=== PATIENT | female | born 1935 | race Caucasian/White ===

== ENCOUNTER 2016-09-28 09:32 | Day surgery (SDC) | payer MEDICARE, MEDICAID ==
[2016-09-28] MEDS ORDERED: PROPOFOL 10 MG/ML VIAL IV ONE (14:00)
[2016-09-28] MEDS ORDERED: LIDOCAINE 2% MDV (20MG/ML) 20ML VIAL IV ONE (14:00)
--- NOTE | 2016-10-04 13:20 | Operative Note ---
DATE OF SURGERY: 09/28/2016 OPERATION: COLONOSCOPY with random biopsy and cold forceps polyp removal. PREOPERATIVE DIAGNOSIS: Chronic idiopathic diarrhea. POSTOPERATIVE DIAGNOSES: 1. Chronic diverticulosis, left sided greater than right. 2. Normal-appearing terminal ileum. 3. Diminutive ascending colon polyp. 4. Rule out microscopic colitis. PROCEDURE: After informed consent was obtained from the patient, the patient was placed in the left lateral decubitus position in the endoscopy suite, sedated and monitored by the department of anesthesia. Digital rectal exam was unremarkable. A well-lubricated [id number] colonoscope was inserted into the rectum and advanced to the cecum. Preparation quality was excellent. The cecum and terminal ileum as well aspirin the ascending colon, transverse colon, descending colon, sigmoid colon, and rectum were carefully inspected. There were colonic diverticular changes left sided much greater than right being noted. No inflammation was seen. Random biopsies were obtained throughout the length of the colon, particularly from the ascending, transverse, and rectosigmoid colon and will be sent to rule out microscopic colitis changes. There was a diminutive descending colon polyp which was removed with a cold forceps. Minimal bleeding was noted. Forward and J-turn views of the rectum and anorectum were unremarkable. The endoscope was straightened, the rectal ampulla deflated, and the endoscope was removed. RECOMMENDATIONS: We will await the results of tissue histology. As always, thank you for allowing me to participate in the healthcare of your patients. CC: PEEWEE Bellamy
== END 2016-09-28 12:06 | disposition home or self-care (01) ==
LOC: HOP 09:32
PROVIDERS: ATTEND Internal Medicine Gastroenterology
DX: K57.30 Diverticulosis of large intestine without perforation or abscess without bleeding (principal); K63.5 Polyp of colon; I10 Essential (primary) hypertension; E78.00 Pure hypercholesterolemia, unspecified

== ENCOUNTER 2017-10-01 08:44 | Emergency (ER) | payer MEDICARE, MEDICAID ==
--- NOTE | 2017-10-01 09:12 | Emergency Department Record ---
History of Present Illness - General Chief Complaint: Numbness Stated Complaint: FACE NUMBNESS Time Seen by Provider: 10/01/17 08:53 Source: Patient Mode of Arrival: Ambulatory Limitations: No limitations - History of Present Illness Initial Comments: The patient states she has had very mild L leg numbness for about 2 weeks. Now for the last 2-3 days she feels like her L lower face is slightly numb also. She denies any weakness, visual or speech changes, balance issues or confusion. The patient did drive herself here to the ER with no difficulty. Onset/Timin -: Week(s) Location: Left face, Left leg History of same: No Place: Home Quality: Numb, Tingling Improves With: None Worsens With: None On Anticoagulants: No Associated Symptoms: Denies other symptoms Treatments Prior to Arrival: None - [place] Coma Scale Eye Response: (4) Open spontaneously Motor Response: (6) Obeys commands Verbal Response: (5) Oriented [place] Total: 15 - Symptoms of Stroke Symptoms of stroke: Numbness - Related Data Allergies/Adverse Reactions: Allergies Allergy/AdvReac Type Severity Reaction Status Date / Time No Known Drug Allergies Allergy Verified 10/01/17 08:46 Travel Screening - Travel/Exposure Within Last 30 Days Have you traveled within the last 30 days?: No Review of Systems Constitutional: Denies: Chills, Fever Eyes: Denies: Eye discharge ENT: Denies: Congestion Respiratory: Denies: Cough, Dyspnea Cardiovascular: Denies: Arrhythmia, Syncope Endocrine: Denies: Fatigue Gastrointestinal: Denies: Abdominal pain Genitourinary: Denies: Dysuria Musculoskeletal: Denies: Back pain Past Medical History - SOCIAL HISTORY Smoking Status: Never smoker Alcohol Use: None Drug Use: None - RESPIRATORY Hx Respiratory Disorders: No - CARDIOVASCULAR Hx Cardio Disorders: Yes Hx Hypertension: Yes (CONTROLLED) Comment:: high cholesterol - NEURO Hx Neuro Disorders: No - GI Hx GI Disorders: Yes Hx Diverticulitis: Yes (OCC FLARE UPS) - Hx Genitourinary Disorders: Yes Hx UTI: Yes - ENDOCRINE Hx Endocrine Disorders: No - MUSCULOSKELETAL Hx Musculoskeletal Disorders: Yes Hx Arthritis: Yes Hx Gout: Yes - PSYCH Hx Psych Problems: No - HEMATOLOGY/ONCOLOGY Hx Hematology/Oncology Disorders: No Family Medical History Any Significant Family History?: Yes Hx Cancer: Father, Brother/Sister *Cancer Comment: BREAST, LUNG Physical Exam - General General Appearance: Alert, Oriented x3 (The patient is answering all questions normally including date, month, year, age, Bday, address and phone number.), Cooperative, No acute distress - Head Head exam: Atraumatic, Normocephalic, Normal inspection - Eye Eye exam: Normal appearance, PERRL, EOMI - ENT Throat exam: Normal inspection. negative: Tonsillar erythema, Tonsillar exudate - Neck Neck exam: Normal inspection, Full ROM, Other (Neg bruits.). negative: Tenderness - Respiratory Respiratory exam: Normal lung sounds bilaterally. negative: Respiratory distress - Cardiovascular Cardiovascular Exam: Regular rate, Normal rhythm, Normal heart sounds - GI/Abdominal GI/Abdominal exam: Soft, Normal bowel sounds. negative: Tenderness - Extremities Extremities exam: Normal inspection, Full ROM, Normal capillary refill. negative: Tenderness - Neurological Neurological exam: Alert, Normal gait (The patient has a normal gait with no ataxia.), Oriented X3, Reflexes normal, Other (Neg Drift and Rhomberb exams. The patient's Knee to cintron tests are normal bilaterally along with finger to nose testing.). negative: Abnormal gait, Altered, Motor sensory deficit (the patient's sensation testing is equal and normal to her legs and face bilaterally. The numbness is only subjective.) - Psychiatric Psychiatric exam: negative: Anxious, Depressed - Skin Skin exam: negative: Rash Course Vital Signs 10/01/17 08:49 Temperature 97.7 F Pulse Rate 80 Respiratory 20 Rate Blood Pressure 175/80 Pulse Ox 97 - Reevaluation(s) Reevaluation #1: The patient is doing well with no new changes. She has no objective findings of numbness and her symptoms have been fairly chronic. The patient does have a family member here who states she is at her baseline presently. I do not find any objective findings of CVA at this time. I did discuss the issues with her Family doctor (Luisa) who does agree with the plan for discharge and F/U later this week. The patient is to take a full dose ASA until she see's her PCP. 10/01/17 10:08 Medical Decision Making - Data Complexity MDM Data: Labs Ordered and/or Reviewed, X-Ray Ordered and/or Reviewed, EKG Ordered and/or Reviewed - Lab Data Result diagrams: 10/01/17 09:10 10/01/17 09:10 - EKG Data -: EKG Interpreted by Me EKG: No Acute Changes, Normal EKG - Radiology Data Radiology results: Report reviewed (Head CT: Neg for acute stroke.) Disposition Disposition: Discharge Clinical Impression: Paresthesia Disposition: Home, Self-Care Condition: (2) Stable Instructions: Paresthesia (ED) Additional Instructions: Please take a full dose ASA once a day for a week and please see your family doctor for recheck later this week. Return to the ER for any worsening symptoms of numbness, or any weakness, or confusion. Forms: Patient Portal Access Time of Disposition: 10:12 Quality - Quality Measures Quality Measures: N/A - Blood Pressure Screening View Details: Yes Does Patient Have Any of the Following: Active Dx of HTN Blood Pressure Classification: Hypertensive Reading Systolic Measurement: 149 Diastolic Measurement: 77 Screening for High Blood Pressure: Patient Exclusion, Hx of HTN [G9744]
[2017-10-01 09:18] LABS: EOS % 1.2 % (0-6); GRAN % 51.6 % (47-80); HEMATOCRIT 42.6 % (35.0-47.0); HEMOGLOBIN 14.4 gm/dl (11.6-16.0); LYMPH % 32.4 % (16-45); MEAN CELL VOLUME 94.5 fl (81-97); MEAN CORPUSCULAR HEMOGLOBIN 31.9 pg (27-33); MEAN CORPUSCULAR HGB CONC 33.8 g/dl (32-36); MEAN PLATELET VOLUME 9.5 fl (7.4-10.4); MONO % 13.8 % (0-9); PLATELET COUNT 254 K/uL (130-400); RED BLOOD COUNT 4.51 M/uL (3.80-5.40); RED CELL DISTRIBUTION WIDTH 13.1 % (11.5-14.5); WHITE BLOOD COUNT W/O DIFF 5.1 K/uL (4.2-12.2)
[2017-10-01 09:28] LABS: BLOOD UREA NITROGEN 16 mg/dL (8-23); CREATININE 0.7 mg/dL (0.5-0.9); EST GLOMERULAR FILTRATION RATE > 60 mL/min
[2017-10-01 09:31] LABS: GLUCOSE,RANDOM 117 mg/dL (74-109)
[2017-10-01 09:34] LABS: CREATINE PHOSPHOKINASE 81 U/L (26-192)
[2017-10-01 09:35] LABS: CKMB 2.6 ng/mL (<3.77)
[2017-10-01] MEDS ORDERED: ASPIRIN 325 MG TABLET PO ONE (10:10)
--- NOTE | 2017-10-01 14:13 | CT SCAN REPORT ---
EXAM: CT OF THE HEAD WITHOUT CONTRAST HISTORY: LEFT FACIAL NUMBNESS FOR THREE DAYS. LEFT LEG NUMBNESS FOR TWO WEEKS. INTERMITTENT CONFUSION. TECHNIQUE: Routine noncontrast CT examination of the head was obtained. Comparison: CT of the head without contrast dated 02/03/14. FINDINGS: There is minor age related atrophy. No ventriculomegaly. No new area of abnormally increased or decreased attenuation is noted throughout the brain substance. There is questionable minimal periventricular and subcortical white matter lucencies scattered in each cerebral hemisphere consistent with chronic small vessel ischemia, stable. No abnormal extraaxial fluid collection is seen. No focal skull abnormality. There is minimal mucosal thickening in the left maxillary sinus. The paranasal sinuses and mastoid air cells to the extent visualized are otherwise clear. The obits as visualized are unremarkable. IMPRESSION: 1. NO CT EVIDENCE OF AN ACUTE INTRACRANIAL ABNORMALITY WITHOUT CHANGE IN APPEARANCE OF THE BRAIN SINCE 02/03/14. 2. MINOR AGE RELATED ATROPHY. MINIMAL WHITE MATTER LUCENCIES SCATTERED IN EACH CEREBRAL HEMISPHERE CONSISTENT WITH CHRONIC SMALL VESSEL ISCHEMIA. 3. MINOR MUCOSAL THICKENING IN THE LEFT MAXILLARY SINUS. JOB NUMBER: [id number] MTDD
== END 2017-10-01 10:23 | disposition home or self-care (01) ==
LOC: ER 08:44
DX: R20.2 Paresthesia of skin (principal); R20.0 Anesthesia of skin; I10 Essential (primary) hypertension
CPT/HCPCS: 70450; 80048; 82550; 82553; 84484; 85025; 93005; 93010; 99284

== ENCOUNTER 2017-10-19 20:05 | Emergency (ER) | payer MEDICARE, MEDICAID ==
--- NOTE | 2017-10-19 20:28 | Emergency Department Record ---
History of Present Illness - General Chief Complaint: Confusion Stated Complaint: CONFUSION Time Seen by Provider: 10/19/17 20:06 Source: Patient Mode of Arrival: Wheelchair Limitations: No limitations - History of Present Illness Initial Comments: 82 yo female presents to ED for evaluation of possible UTI. Patient reports a history of frequent UTI's, reports that she is currently on Cipro for recent UTI diagnosis. Patient denies urinary symptoms, denies fevers, chills, or recent illness. Patient does report mild "buzzing in the head", and decreased activity for the past several weeks. Patient denies focal weakness, nausea, or headache symptoms. MD Complaint: Other Onset/Timin -: Month(s) Severity: Mild Consistency: Constant Context: Change in medication Associated Symptoms: Denies other symptoms - [place] Coma Scale Eye Response: (4) Open spontaneously Motor Response: (6) Obeys commands Verbal Response: (5) Oriented [place] Total: 15 - Symptoms of Stroke Onset of Symptoms Date: 10/19/17 Symptoms of stroke: Unable to Think Clearly - Related Data Allergies Allergy/AdvReac Type Severity Reaction Status Date / Time No Known Drug Allergies Allergy Unverified 10/11/17 09:01 Travel Screening - Travel/Exposure Within Last 30 Days Have you traveled within the last 30 days?: No - Travel/Exposure Within Last Year Have you traveled outside the [place] in the last year?: No - Additonal Travel Details Have you been exposed to anyone with a communicable illness?: No - Travel Symptoms Symptom Screening: None Review of Systems Constitutional: Denies: Chills, Fever, Malaise, Night sweats Eyes: Denies: Eye discharge, Eye pain ENT: Denies: Congestion, Ear pain, Epistaxis Respiratory: Denies: Cough, Dyspnea Cardiovascular: Denies: Chest pain, Dyspnea on exertion Endocrine: Reports: Fatigue. Denies: Heat or cold intolerance Gastrointestinal: Denies: Abdominal pain, Nausea, Vomiting Genitourinary: Denies: Dysuria, Frequency, Hematuria, Incontinence, Retention Musculoskeletal: Denies: Arthralgia, Back pain, Gout, Joint swelling Skin: Denies: Bruising, Change in color Neurological: Denies: Abnormal gait, Confusion, Headache, Seizure Psychiatric: Denies: Anxiety Hematological/Lymphatic: Denies: Anemia, Blood Clots Past Medical History - SOCIAL HISTORY Smoking Status: Never smoker Alcohol Use: None Drug Use: None - RESPIRATORY Hx Respiratory Disorders: No - CARDIOVASCULAR Hx Cardio Disorders: Yes Hx Hypertension: Yes (CONTROLLED) Comment:: high cholesterol - NEURO Hx Neuro Disorders: No - GI Hx GI Disorders: Yes Hx Diverticulitis: Yes (OCC FLARE UPS) - Hx Genitourinary Disorders: Yes Hx UTI: Yes - ENDOCRINE Hx Endocrine Disorders: No - MUSCULOSKELETAL Hx Musculoskeletal Disorders: Yes Hx Arthritis: Yes Hx Gout: Yes - PSYCH Hx Psych Problems: No - HEMATOLOGY/ONCOLOGY Hx Hematology/Oncology Disorders: No Family Medical History Any Significant Family History?: No Hx Cancer: Father, Brother/Sister *Cancer Comment: BREAST, LUNG Physical Exam - General General Appearance: Alert, Oriented x3, Cooperative, No acute distress, Other ( Alert, well appearing on examination) Limitations: No limitations - Head Head exam: Atraumatic, Normocephalic, Normal inspection Head exam detail: negative: Abrasion, Contusion, Chavez's sign, General tenderness, Hematoma, Laceration - Eye Eye exam: Normal appearance. negative: Conjunctival injection, Periorbital swelling, Periorbital tenderness, Scleral icterus - ENT Ear exam: negative: Auricular hematoma, Auricular trauma Nasal Exam: negative: Active bleeding, Discharge, Dried blood, Foreign body Mouth exam: negative: Drooling, Laceration, Muffled voice, Tongue elevation - Neck Neck exam: Normal inspection. negative: Meningismus, Tenderness - Respiratory Respiratory exam: Normal lung sounds bilaterally. negative: Rales, Respiratory distress, Rhonchi, Stridor - Cardiovascular Cardiovascular Exam: Regular rate, Normal rhythm, Normal heart sounds - GI/Abdominal GI/Abdominal exam: Soft. negative: Rebound, Rigid, Tenderness - Rectal Rectal exam: Deferred - exam: Deferred - Extremities Extremities exam: Normal inspection. negative: Calf tenderness, Pedal edema, Tenderness - Back Back exam: Denies: CVA tenderness (R), CVA tenderness (L) - Neurological Neurological exam: Alert, Normal gait, Oriented X3. negative: Motor sensory deficit - Psychiatric Psychiatric exam: Normal affect, Normal mood - Skin Skin exam: Normal color. negative: Abrasion Type of lesion: negative: abrasion Course Vital Signs 10/19/17 20:07 Temperature 97.9 F Pulse Rate 72 Respiratory 18 Rate Blood Pressure 157/81 Pulse Ox 98 - Reevaluation(s) Reevaluation #1: 10/19/17 20:25 CT Brain 10/01/17: No CT evidence of an acute intracranial abnormality, no change from 01/30. Minor atrophy. Chronic small vessel ischemia. Minor mucosal thickening. CT was preformed after the onset of the patient's symptoms, and repeat imaging does not appear indicated at this time. Reevaluation #2: 10/19/17 21:01 Patient reassessed, watching television and resting comfortably. Reevaluation #3: 10/19/17 21:15 Labs reviewed, Na 124, Cl 88. Labs are otherwise grossly unremarkable for an acute process. Patient does report that she drinks a lot of water, was encouraged to cut her water intake in half. Patient is otherwise alert, well appearing, and reports that she is ready to go home at this time. Patient's family member reports that she appears at her baseline, and appears stable for discharge at this time. Lab slip for repeat Na and Cl levels in 5 days, results to be sent to Dr. Lan (PCP is Sylvie Richter who is on Maternity leave). Medical Decision Making - Lab Data Result diagrams: 10/19/17 20:30 10/19/17 20:30 Disposition Disposition: Discharge Clinical Impression: Hyponatremia Disposition: Home, Self-Care Condition: (2) Stable Instructions: Hyponatremia (ED) Additional Instructions: Return to ED if your symptoms worsen or if you have any concerns. Cut your walker intake in half. Follow-up with your family doctor in 3-5 days as directed. Forms: Patient Portal Access Time of Disposition: 21:19 Quality - Quality Measures Quality Measures: N/A - Blood Pressure Screening Does Patient Have Any of the Following: No Blood Pressure Classification: Pre-Hypertensive BP Reading Systolic Measurement: 157 Diastolic Measurement: 81 Screening for High Blood Pressure: < Pre-Hypertensive BP, F/U Documented > [ [id number]] Pre-Hypertensive Follow-up Interventions: Referral to alternative/primary care provider.
[2017-10-19 20:44] LABS: BASO % 0.5 % (0-6); EOS % 0.5 % (0-6); GRAN % 58.3 % (47-80); HEMATOCRIT 37.7 % (35.0-47.0); HEMOGLOBIN 12.8 gm/dl (11.6-16.0); LYMPH % 28.9 % (16-45); MEAN CELL VOLUME 92.2 fl (81-97); MEAN CORPUSCULAR HEMOGLOBIN 31.3 pg (27-33); MEAN PLATELET VOLUME 8.6 fl (7.4-10.4); MONO % 11.8 % (0-9); PLATELET COUNT 287 K/uL (130-400); RED BLOOD COUNT 4.09 M/uL (3.80-5.40); RED CELL DISTRIBUTION WIDTH 12.7 % (11.5-14.5); WHITE BLOOD COUNT W/O DIFF 5.7 K/uL (4.2-12.2)
[2017-10-19 20:52] LABS: URINE APPEARANCE CLEAR; URINE BILIRUBIN NEGATIVE (NEGATIVE); URINE BLOOD NEGATIVE (NEGATIVE); URINE COLOR YELLOW; URINE GLUCOSE (UA) NEGATIVE (NEGATIVE); URINE KETONE NEGATIVE (NEGATIVE); URINE LEUKOCYTE ESTERASE NEGATIVE (NEGATIVE); URINE NITRITE NEGATIVE (NEGATIVE); URINE PROTEIN NEGATIVE (NEGATIVE); URINE UROBILINOGEN 0.2 E.U./dL (0.20 - 1.00)
[2017-10-19 21:00] LABS: BLOOD UREA NITROGEN 14 mg/dL (8-23); CREATININE 0.6 mg/dL (0.5-0.9); EST GLOMERULAR FILTRATION RATE > 60 mL/min; TOTAL PROTEIN 6.5 g/dL (6.6-8.7)
[2017-10-19 21:02] LABS: GLUCOSE,RANDOM 132 mg/dL (74-109)
[2017-10-19 21:05] LABS: ALB/GLOB RATIO 1.7 (1.1-1.8); ALBUMIN 4.1 g/dL (4.0-5.0); ALKALINE PHOSPHATASE 98 U/L (35-104); ALT/SGPT 18 U/L (<33); AST/SGOT 28 U/L (10.0-35.0)
== END 2017-10-19 21:30 | disposition home or self-care (01) ==
LOC: ER 20:05
DX: E87.1 Hypo-osmolality and hyponatremia (principal); R41.0 Disorientation, unspecified; I10 Essential (primary) hypertension
CPT/HCPCS: 80053; 81003; 85025; 99283